=== PATIENT | male | born 2000 | race Caucasian/White ===

== ENCOUNTER 2024-11-19 13:19 | Emergency (ER) | payer OTHER, SELFPAY ==
--- OUTSIDE RECORDS SUMMARY | 2024-11-19 09:00 | XMS_ITS | Encounter Summary ---
Author Organization [facility] Address [address] [place] [address] Care Team Providers Care Plater Apprentice Name Role Phone Unavailable Primary Care Provider Unavailabl e Reason for Referral * Procedure/Equipment (Routine) - Incomplete Specialty Diagnoses / Procedures Referred By Mare t Referred To Contact Diagnoses Pain of left calf Procedures US VENOUS LEFT LOWER EXTREM DOPPLER Nino Martínez MD [address] [place] [address] Phone: tel: fax: Referral ID Status Reason Start Date Expiration Date V isits Requested Visits Authorized [id number] Incomplete 11/19/2024 02/18/2026 1 1 Reason for Visit * Reason Comments LEG PAIN Encounter Details Date Type Department Care Team (Late st Contact Info) Description 11/19/2024 9:00 AM CDT Office Visit [facility] [facility] [facility] [address] [place] [address] Nino Martínez MD [address] [place] [address] Encounter related to worker's compensation claim; Pain of left calf Social History Tobacco Use Types Packs/Day Years Used Date Smoking Tobacco: Never Assessed Sex and Gender Information Value Date Recorded Sex Assigned at Not on file Legal Sex Male 8:47 AM CDT Gender Identity Not on file Sexual Orientation Not on file documented as of this encounter Last Filed Vital Signs Vital Sign Reading Time Taken Comments Blood Pressure 127/60 11/19/2024 9:06 AM CDT Pulse 67 11/19/2024 9:06 AM CDT Temperature 37 C (98.6 F) 11/19/2024 9:06 AM CDT Respiratory Rate 16 11/19/2024 9:06 AM CDT Oxygen Saturation 100% 11/19/2024 9:06 AM CDT Inhaled Oxygen Concentration - - Weight - - Height - - Body Mass Index - - documented in this encounter Patient Instructions * Patient Instructions* Nino Martínez MD - 11/19/2024 9:00 AM CDT Go to [facility] ER for further evaluation. documented in this encounter Progress Notes * Nino Martínez MD - 11/19/2024 9:00 AM CDT CHIEF COMPLAINT Chief Complaint Patient presents with LEG PAIN HISTORY OF PRESENT ILLNESS 24 y.o. year old male presents to the Urgent Care today for evaluation of worker's comp evaluation for a crushing injury on the left calf. Apparently while at work on 11/14/2024 his left leg caught between 2 machines where he felt like the leg was squished. Afterward he thought he has only mind injuries but since then it continues to swell and bruise and started noticing tingling and numbness down to the left foot. Has tried upon ice pack and take ibuprofen with some relief. He attempts to go to work today and was told to come in therefore the reason why he is here. Denies any shortness of breath or chest pain. Reviewed Nursing Notes: Tatiana Edwards RN 11/19/24 0906 Signed Mani Lopez is a 24 y.o.male presents to the Urgent Care for LEG PAIN . Patient presents with pain to L leg that happened while at work on 11/14. Leg was squished between two machines. Swelling and bruising noted. He reports numbness and tingling to L foot. Sensation intact. Has tried ice and ibuprofen with some relief. REVIEW OF SYSTEMS 10 review of systems were reviewed and normal except what were noted under HPI. PRIOR HISTORY Medications: Medications - Previous to this Encounter[1] Reviewed via [facility] Chart Review/CareEverywhere: Allergies Past Medical HistoryProblem List[2] Past Surgical History Social HistorySocial History[3] PHYSICAL EXAM Vitals Reviewed: BP 127/60 (BP Location: Right Arm, BP Cuff Size: Regular - Long) Pulse 67 Temp 37 ??C (98.6 ??F) (Oral) Resp 16 SpO2 100% GENERAL: Healthy-appearing patient. Alert oriented x3. In no acute respiratory distress. 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 HEAD: Normocephalic atraumatic. EYE: Nonicteric sclera. Conjunctiva without injection. ENT: Neck supple. CV: Regular rate and rhythm without murmur. Distal pulses are equally palpable and appear to be normal. PULM: Normal auscultation of both lungs. No wheezing, crackles and rales appreciated. MSK: Examination of the left calf in comparing to the right noticed some areas of ecchymosis right [id number] and also just above the ankle on the left side. Noted to be edematous but nonpitting.Palpating the calf appears to be very firm and very tender. Decreased dorsalis pulse on the left side compared to the right. The toes did not seem to be cold to touch in comparing to the right. SKIN: No rash or other lesions appreciated. NEURO: Alert and oriented x3. Able to communicate in full sentences. LABS - IMAGING - MEDICATIONS LABS/EKG: No results found for any visits on 11/19/24. IMAGING: US VENOUS LEFT LOWER EXTREM DOPPLER Result Date: 11/19/2024 EXAM: US VENOUS LEFT LOWER EXTREM DOPPLER INDICATION: recent crushing injury/paind and swelling COMPARISON: None. TECHNIQUE: The venous system of the left lower extremity was visualized using color-flow Doppler technique. FINDINGS: The common femoral, proximal deep femoral, femoral, popliteal, and v isualized portions of the posterior tibial and peroneal veins show normal compressibility, color flow, and response to augmentation. The great saphenous vein compresses normally. TINOCO'S CYST: No Nonspecific complex collection in the soft tissues at the level of the distal calf medially measuring 7.1 x 4.7 x 1.8 cm. No associated color Doppler flow. 1. No evidence of deep venous thrombosis. Small calf vein thrombosis cannot be completely excluded by this technique. 2. Nonspecific complex collection measuring up to 7.1 cm in the soft tissues of the distal calf medially. Given history of recent trauma, findings probably represent hematoma. Signed by: Syed Carrasco 11/19/2024 11:00 AM INTERVENTIONS: MEDICAL DECISION MAKING Patient seen and assessed. Presented to Urgent Care for what appears to be a crushing injury to on the left calf causing now swelling and pain and ecchymosis. Differential diagnosis include DVT, compartment syndrome. Proceed with ultrasound to rule out DVT and this would give us some ideas of what is going on with the compartment as well. The ultrasound rule out DVT however does have hematoma in the soft tissue. At this point I explained to the patient that he needs to go to the ER to further evaluate for compartment syndrome. The patient voiced understanding. His co-worker we will come pick him up and taking him directly to the [facility] ER which is the closest hospital here. ASSESSMENT & PLAN DIAGNOSIS: ICD-10-CM 1. Encounter related to worker's compensation claim [email or web address] 2. Pain of left calf M79.662 US VENOUS LEFT LOWER EXTREM DOPPLER DISPOSITION: Discharge Home Nino Martínez M.D. [place] [address] [facility] [1] No outpatient medications prior to visit. No facility-administered medications prior to visit. [2] There is no problem list on file for this patient. [3] Social History Tobacco Use Smoking status: Not on file Smokeless tobacco: Not on file Substance Use Topics Alcohol use: Not on file Drug use: Not on file documented in this encounter Nursing Notes * Tatiana Edwards RN - 11/19/2024 9:00 AM CDT Mani Lopez is a 24 y.o.male presents to the Urgent Care for LEG PAIN . Patient presents with pain to L leg that happened while at work on 11/14. Leg was squished between two machines. Swelling and bruising noted. He reports numbness and tingling to L foot. Sensation intact. Has tried ice and ibuprofen with some relief. documented in this encounter Plan of Treatment Not on file documented as of this encounter Results * US VENOUS LEFT LOWER EXTREM DOPPLER (11/19/2024 10:56 AM CDT) Anatomical Region Laterality Modality Vascular, Leg Ultrasound Impressions 11/19/2024 11:00 AM CDT 1. No evidence of deep venous thrombosis. Small calf vein thrombosis cannot be completely excluded by this technique. 2. Nonspecific complex collection measuring up to 7.1 cm in the soft tissues of the distal calf medially. Given history of recent trauma, findings probably represent hematoma. Signed by: Syed Carrasco 11/19/2024 11:00 AM Narrative 11/19/2024 11:00 AM CDT EXAM: US VENOUS LEFT LOWER EXTREM DOPPLER INDICATION: recent crushing injury/paind and swelling COMPARISON: None. TECHNIQUE: The venous system of the left lower extremity was visualized using color-flow Doppler technique. FINDINGS: The common femoral, proximal deep femoral, femoral, popliteal, and visualized portions of the posterior tibial and peroneal veins show normal compressibility, color flow, and response to augmentation. The great saphenous vein compresses normally. TINOCO'S CYST: No Nonspecific complex collection in the soft tissues at the level of the distal calf medially measuring 7.1 x 4.7 x 1.8 cm. No associated color Doppler flow. Procedure Note Syed Carrasco MD - 11/19/2024 EXAM: US VENOUS LEFT LOWER EXTREM DOPPLER INDICATION: recent crushing injury/paind and swelling COMPARISON: None. TECHNIQUE: The venous system of the left lower extremity was visualizedusing color-flow Doppler technique. FINDINGS: The common femoral, proximal deep femoral, femoral, popliteal, andvisualized portions of the posterior tibial and peroneal veins show normalcompressibility, color flow, and response to augmentation. The greatsaphenous vein compresses normally. TINOCO'S CYST: No Nonspecific complex collection in the soft tissues at the level of thedistal calf medially measuring 7.1 x 4.7 x 1.8 cm. No associated colorDoppler flow. IMPRESSION 1. No evidence of deep venous thrombosis. Small calf vein thrombosiscannot be completely excluded by this technique. 2. Nonspecific complex collection measuring up to 7.1 cm in the softtissues of the distal calf medially. Given history of recent trauma,findings probably represent hematoma. Signed by: Syed Carracso 11/19/2024 11:00 AM us Nino Martínez MD [facility] Final Result documented in this encounter Visit Diagnoses Diagnosis Encounter related to worker's compensation claim Pain of left calf Pain of left calf documented in this encounter
--- OUTSIDE RECORDS SUMMARY | 2024-11-19 11:00 | XMS_ITS | Encounter Summary ---
Author Organization [facility] Address [address] [place] [address] Care Team Providers Care Blood Donor Recruiter Supervisor Name Role Phone Unavailable Primary Care Provider Unavailabl e Reason for Visit * Procedure/Equipment (Routine) - Incomplete Specialty Diagnoses / Procedures Referred By Mare t Referred To Contact Diagnoses Pain of left calf Procedures US VENOUS LEFT LOWER EXTREM DOPPLER Nino Martínez MD [address] [place] [address] Phone: tel: fax: Referral ID Status Reason Start Date Expiration Date V isits Requested Visits Authorized [id number] Incomplete 11/19/2024 02/18/2026 1 1 Encounter Details Date Type Department Care Team (Late st Contact Info) Description 11/19/2024 11:00 AM CDT Ancillary Procedure [facility] [address] [place] [address] Nino Martínez MD [address] [place] [address] Pain of left calf Social History Tobacco Use Types Packs/Day Years Used Date Smoking Tobacco: Never Assessed Sex and Gender Information Value Date Recorded Sex Assigned at Not on file Legal Sex Male 8:47 AM CDT Gender Identity Not on file Sexual Orientation Not on file documented as of this encounter Plan of Treatment Not on file documented as of this encounter Procedures Procedure Name Priority Date/Time Associated Diagnosis Comments US VENOUS LEFT LOWER EXTREM DOPPLER STAT 11/19/2024 10:56 AM CDT Pain of left calf documented in this encounter Results * US VENOUS LEFT [...] trauma,findings probably represent hematoma. Signed by: Syed Carrasco 11/19/2024 11:00 AM us Nino Martínez MD [facility] Final Result documented in this encounter Visit Diagnoses Diagnosis Pain of left calf documented in this encounter
[2024-11-19 13:37] VITALS: BP 110/63; PULSE 67; RESP 16; TEMP 36.8; O2SAT 99; BMI 30.2
--- NOTE | 2024-11-19 13:58 | ED_ITS ---
HPI - General Adult General Chief complaint: Extremity Pain/Injury, Lower Stated complaint: L leg injury Time Seen by Provider: 11/19/24 13:22 History of Present Illness HPI narrative: Patient here today with left lower extremity and swelling after an injury that occurred at work on . 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 Patient was seen in [facility] for this. His report is that XRays were negative but concern for blood clot or compartment symptom and sent to the ER for an ultrasound. 24-year-old young man presenting to the emergency department following an injury to his left lower leg being crushed between a couple machines while on the job landscaping. This injury occurred last week. Was seen at an urgent care with negative x-rays. Seemed to be getting a little better but then a few days ago pain seemed to escalate again and had increased swelling distally. He is having trouble walking due to pain. Has had continued swelling in the medial lower left leg that seems to come and go little bit with icing. Pain primarily seems to be in this area. Concern due to increased swelling distally as well into the ankle and foot. No fevers. Urgent care and recommended that be evaluated with concern of clot. Presents with concerned colleague or rueda of sorts? Related Data Home Medications ?Medication ?Instructions ?Recorded ?Confirmed No Known Home Medications 11/19/2405/14 Allergies Allergy/AdvReac Type Severity Reaction Status Date / Time No Known Drug Allergies Allergy Verified 11/19/24 16:31 Review of Systems Status of ROS: Reports: 6 or more systems reviewed and unremarkable except as noted in History and below [facility] Social History Smoking Status: Current some day smoker What tobacco products do you use: cigarettes How often do you have a drink containing alcohol: 4 or more times a week How many standard drinks containing alcohol do you have on a typical day: 1 or 2 AUDIT-C Alcohol total score: 4 Non-prescribed substance use: denies use Exam Narrative: Exam Narrative: Pleasant. Appears a little uncomfortable with movement of his left leg. Has this propped up on a pillow in bed. Breathing easily. Heart in regular rate and rhythm. There is a little bruising in the medial knee. Diffuse swelling from the knee down. Impact site appears to be medial middle lower leg. There is subtle tissue breakdown here. I do not see cellulitic change about the leg. Below this area of possible impact there is an area of about 7 cm of more swelling a little more bruising. Ankle is swollen; it is bruised beneath both malleoli. Puffy foot as well. He is well-perfused distally. Generally tender and I think hard to distinguish Homans. Const: Vital Signs, click to edit/add: Vital Signs - 24 hr 11/19/24 13:37 Temperature 98.3 F Pulse Rate [Pulse Oximeter] 67 Respiratory Rate 16 Blood Pressure [Ri ght Upper Arm] 110/63 Pulse Oximetry 99 Oxygen Delivery Me thod Room Air Documenting provider has reviewed patient's vital signs: yes Course Vital Signs Vital signs: Initial Vital Signs Temperature 98.3 F 11/19/24 13:37 Temperature Source Temporal Artery Scan 11/19/24 13:37 Pulse Rate 67 11/19/24 13:37 Respiratory Rate 16 11/19/24 13:37 Blood Pressure 110/63 11/19/24 13:37 Blood Pressure Mean 78 11/19/24 13:37 Blood Pressure Position Sitting 11/19/24 13:37 Pulse Oximetry 99 11/19/24 13:37 Oxygen Delivery Method Room Air 11/19/24 13:37 Vital Signs Temperature 98.3 F 11/19/24 13:37 Pulse Rate 67 11/19/24 13:37 Respiratory Rate 16 11/19/24 13:37 Blood Pressure 110/63 11/19/24 13:37 Pulse Oximetry 99 11/19/24 13:37 Oxygen Delivery Method Room Air 11/19/24 13:37 Temperature 98.3 F 11/19/24 13:37 Pulse Rate 67 11/19/24 13:37 Respiratory Rate 16 11/19/24 13:37 Blood Pressure 110/63 11/19/24 13:37 Pulse Oximetry 99 11/19/24 13:37 Oxygen Delivery Method Room Air 11/19/24 13:37 Medications Administered Medications: Discontinued Medications Generic Name Dose Route Start Last Admin Trade Name Freq PRN Reason Stop Dose Admin Sodium Chloride 500 mls @ 500 mls/hr 11/19/24 15:36 11/19/24 17:36 0.9 % Sodium Chloride 500 Ml IV 11/19/24 16:35 Infused .Q1H ONE Infusion Ibuprofen 600 mg 11/19/24 14:19 11/19/24 16:05 Ibuprofen 200 Mg Tablet PO 11/19/24 14:20 600 mg ONCE ONE Administration Oxycodone/Acetaminophen 2 tab 11/19/24 14:19 11/19/24 16:06 Oxycodone/Apap 5-325 Tablet PO 11/19/24 14:20 2 tab ONCE ONE Administration Medical Decision Making MDM Narrative Medical decision making narrative: We can certainly do ultrasound looking for the venous thrombus. I think that w ould be beneficial now a week in and to characterize this area of swelling. I think that most of the swelling though is related to mobilization of edema/hematoma. No fracture noted on initial imaging though this may still be present. Compartment syndrome also in differential although I think that does not have the degree of pain I would expect with this and is well-perfused. Appeared to appreciate offer of pain medication but declined once actually brought to him. Discussed findings and ultrasound with lens cementer. Primary finding of hematoma. No DVT. Radiology over-read below Study:?US-Extremity Left LEV-11/19/2024 3:22:04 PM Ordering Physician:Madonna Mccartney Final Report: INDICATION: Increased pain swelling TECHNIQUE: A compression venous ultrasound exam was performed of the left lower extremity using andres-scale imaging, color Doppler and spectral Doppler analysis. FINDINGS: Sonographic imaging of the left lower extremity demonstrates normal compressibility and color Doppler venous blood flow within the common femoral vein, deep femoral vein, and the proximal greater saphenous vein. Within the thigh, the femoral vein is patent and compressible. At a lower level, the popliteal and posterior tibial veins also show normal compressibility and color Doppler venous blood flow. Limited imaging of the contralateral groin demonstrates a normal spectral waveform and color Doppler venous blood flow within the right common femoral vein. Along the left medial distal calf in the area of lump complex fluid collection measuring 8.5 x 1.6 x 4.9 centimeters. If There has been history of trauma this may represent a hematoma. IMPRESSION: No evidence of deep vein thrombosis within the left lower extremity. Increased pain swelling. Complex fluid collection measuring 8.5 x 1.6 x 4.9 centimeters along the left medial distal calf may represent hematoma there has been history of trauma would recommend follow-up imaging clinical correlation. Dictated by Mary Ann Kaur MD @ 11/19/2024 3:48:30 PM Clarifying again that there has been a relatively abrupt change in the swelling. I think evaluating for active extravasation might be a good idea. I did propose CT scan. Can check hemoglobin as well as CPK here on blood draw. I did independently review CT imaging. Do not see evidence of a fracture further. Radiology over-read below not noting any active bleeding. INDICATION: EVALUATE FOR ACTIVE BLEEDING IN HEMATOMA. (Sic) No additional clinical history is given. According to the ultrasound worksheet from the same day examination performed earlier the patient presents with left leg pain and swelling associated with a work-related injury not otherwise described. COMPARISON: Same day ultrasound. TECHNIQUE: Single-phase axial CT of the left lower extremity from knee to ankle following intravenous administration of 92 mL Isovue 370. 2D coronal and sagittal reformations were done. No MIP images. FINDINGS: Circumscribed homogeneous hyperattenuating, compared to muscle, lobulated lesion in the superficial anteromedial aspect of the left lower leg measuring approximally 7.2 cm in greatest dimension (craniocaudad as demonstrated on series 6; image 57. Region of interest interrogation shows a Hounsfield measurement of 74 HU consistent with acute clotted blood. These findings are consistent with a hematoma in concordant with the ultrasound findings on the examination performed earlier the same day. There is no evidence of extravasation of intravenous contrast material to indicate active bleeding. Circumferential subcutaneous fat reticulation in the lower leg extending to the medial ankle is consistent with edema/hemorrhage. The hematoma is superficial to the great saphenous vein which is compressed but patent (series 3; image 139, for example). No fracture is identified. IMPRESSION: 1. Superficial hematoma in the medial aspect of the left lower leg measuring approximally 7.2 cm in greatest dimension (craniocaudad). Associated diffuse subcutaneous edema/hemorrhage of the lower leg and medial ankle. 2. No evidence of active bleeding on this single phase postcontrast study. No findings suspicious for pseudoaneurysm. No fracture. Please note that all CT scans at this facility use dose modulation, iterative reconstruction, and/or weight-based dosing when appropriate to reduce radiation dose to as low as reasonably achievable. Dictated by Fransico Roblero MD @ 11/19/2024 5:02:43 PM I think mobilizing some of this fluid would be helpful with discomfort. Recommending activity as tolerated and ankle pumps. I did place a couple Willis wraps. See patient discharge plan for further discussion I think it would be a good idea to rest from your typically physical job for the remainder of this week. Continue to apply antibiotic ointment or white petroleum jelly to the most irritated skin over this week. These Willis wraps might be helpful to push fluid out and therefore improve your comfort. Elevate your leg when at rest. Continue to intermittently flex your ankle while at rest to help mobilize fluid. Can alternate cold and warm packs. Can take up to 800 mg of ibuprofen or up to 1000 mg of acetaminophen per dose. These can also be combined. Lab Data Lab results reviewed: Yes I reviewed the patient's lab results Labs: Lab Results 11/19/24 Range/Units 16:00 WBC 7.02 (4.50-11.00) K/uL RBC 4.82 (4.30-5.90) m/uL Hgb 14.8 (13.5-17.5) gm/dL Hct 43.4 (37.0-53.0) % MCV 90 (80-100) fL MCH 31 (26-34) pg MCHC 34 (32-36) gm/dL RDW Coeff of Ray 13.1 (11.5-15.5) % Plt Count 296 (140-440) K/uL Neut % (Auto) 67.5 (42.0-72.0) % Lymph % (Auto) 18.5 L (20-44) % Casey % (Auto) 11.4 H (0.0-11.0) % Eos % (Auto) 1.9 (0.0-7.0) % Baso % (Auto) 0.6 (0.0-3.0) % Neut # (Auto) 4.74 (1.7-7.0) K/uL Lymph # (Auto) 1.30 (0.90-2.90) K/uL Casey # (Auto) 0.80 (0.00-0.90) K/UL Eos # (Auto) 0.13 (0.00-0.50) K/uL Baso # (Auto) 0.04 (0.00-0.30) K/uL Abs Immat Gran (auto) 0.01 (0.00-0.30) K/uL Imm/Tot Granulo (auto) 0.1 % Sodium 138 (135-149) mmol/L Potassium 4.3 (3.6-5.1) mmol/L Chloride 102 (96-114) mmol/L Carbon Dioxide 29 (20-32) mmol/L Anion Gap 7 (7-15) mEq/L BUN 18 (5-24) mg/dL Creatinine 1.0 (0.5-1.5) mg/dL Estimated Creat Clear 102.79 Estimated GFR 108 ml/min Glucose 103 (60-115) mg/dL Calcium 8.9 (8.4-10.6) mg/dL Total Creatine Kinase 32 L (54-186) U/L Discharge Plan Discharge Clinical Impression: Hematoma, Leg pain, Contusion Patient Disposition: Home w/ Parent or Adult Condition: Stable Additional Instructions: I think it would be a good idea to rest from your typically physical job for the remainder of this week. Continue to apply antibiotic ointment or white petroleum jelly to the most irritated skin over this week. These Willis wraps might be helpful to push fluid out and therefore improve your comfort. Elevate your leg when at rest. Continue to intermittently flex your ankle while at rest to help mobilize fluid. Can alternate cold and warm packs. Can take up to 800 mg of ibuprofen or up to 1000 mg of acetaminophen per dose. These can also be combined. Creo que ser?a buena idea que descansara de elena trabajo f?sico habitual hai el meena de la semana. Contin?e aplicando jay?ento antibi?roxane o vaselina petra en la piel m?s irritada hai esta semana. Estas vendas el?sticas pueden ser ?tiles para expulsar el l?quido y, por lo tanto, mejorar elena comodidad. Eleve la pierna cuando est? en reposo. Contin?e flexionando el tobillo intermitentemente mientras est? en reposo para ayudar a movilizar el l?quido. Puede alternar compresas fr?as y calientes. Puede shahla hasta 800 mg de ibuprofeno o hasta 1000 mg de acetaminof?n por dosis. Tambi?n se pueden combinar. Prescriptions: No Action No Known Home Medications Follow Up/Referrals: Provider,Not a Local [Primary Care Provider, Family Practice] Stand Alone Forms: [employer] Info Instructions
--- NOTE | 2024-11-19 14:19 | CRLHL7_ITS ---
For Patients: As a result of the Century Cures Act, medical imaging exams and procedure reports are released immediately into your electronic medical record. You may view this report before your referring provider. If you have questions, please contact your health care provider. INDICATION: Increased pain swelling TECHNIQUE: A compression venous ultrasound exam was performed of the left lower extremity using andres-scale imaging, color Doppler and spectral Doppler analysis. FINDINGS: Sonographic imaging of the left lower extremity demonstrates normal compressibility and color Doppler venous blood flow within the common femoral vein, deep femoral vein, and the proximal greater saphenous vein. Within the thigh, the femoral vein is patent and compressible. At a lower level, the popliteal and posterior tibial veins also show normal compressibility and color Doppler venous blood flow. Limited imaging of the contralateral groin demonstrates a normal spectral waveform and color Doppler venous blood flow within the right common femoral vein. Along the left medial distal calf in the area of lump complex fluid collection measuring 8.5 x 1.6 x 4.9 centimeters. If There has been history of trauma this may represent a hematoma. IMPRESSION: No evidence of deep vein thrombosis within the left lower extremity. Increased pain swelling. Complex fluid collection measuring 8.5 x 1.6 x 4.9 centimeters along the left medial distal calf may represent hematoma there has been history of trauma would recommend follow-up imaging clinical correlation. Dictated by Mary Ann Kaur MD @ 11/19/2024 3:48:30 PM (Electronically Signed)
--- NOTE | 2024-11-19 15:36 | CRLHL7_ITS ---
For Patients: As a result of the Century Cures Act, medical imaging exams and procedure reports are released immediately into your electronic medical record. You may view this report before your referring provider. If you have questions, please contact your health care provider. INDICATION: EVALUATE FOR ACTIVE BLEEDING IN HEMATOMA. (Sic) No additional clinical history is given. According to the ultrasound worksheet from the same day examination performed earlier the patient presents with left leg pain and swelling associated with a work-related injury not otherwise described. COMPARISON: Same day ultrasound. TECHNIQUE: Single-phase axial CT of the left lower extremity from knee to ankle following intravenous administration of 92 mL Isovue 370. 2D coronal and sagittal reformations were done. No MIP images. FINDINGS: Circumscribed homogeneous hyperattenuating, compared to muscle, lobulated lesion in the superficial anteromedial aspect of the left lower leg measuring approximally 7.2 cm in greatest dimension (craniocaudad as demonstrated on series 6; image 57. Region of interest interrogation shows a Hounsfield measurement of 74 HU consistent with acute clotted blood. These findings are consistent with a hematoma in concordant with the ultrasound findings on the examination performed earlier the same day. There is no evidence of extravasation of intravenous contrast material to indicate active bleeding. Circumferential subcutaneous fat reticulation in the lower leg extending to the medial ankle is consistent with edema/hemorrhage. The hematoma is superficial to the great saphenous vein which is compressed but patent (series 3; image 139, for example). No fracture is identified. IMPRESSION: 1. Superficial hematoma in the medial aspect of the left lower leg measuring approximally 7.2 cm in greatest dimension (craniocaudad). Associated diffuse subcutaneous edema/hemorrhage of the lower leg and medial ankle. 2. No evidence of active bleeding on this single phase postcontrast study. No findings suspicious for pseudoaneurysm. No fracture. Please note that all CT scans at this facility use dose modulation, iterative reconstruction, and/or weight-based dosing when appropriate to reduce radiation dose to as low as reasonably achievable. Dictated by Fransico Roblero MD @ 11/19/2024 5:02:43 PM (Electronically Signed)
--- OUTSIDE RECORDS SUMMARY | 2024-11-19 15:38 | XMS_ITS | Clinical Summary ---
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 [facility] Allergies No known active allergies Encounters Date Type Department Care Team Description 11/19/2024 11:00 AM CDT Ancillary Procedure [facility] [address] [place] [address] Nino Martínez MD Pain of left calf 11/19/2024 9:00 AM CDT Office Visit [id number] [address] [place] [address] Nino Martínez MD Encounter related to worker's compensation claim; Pain of left calf from Last 3 Months Social History Tobacco Use Types Packs/Day Years Used Date Smoking Tobacco: Never Assessed Sex and Gender Information Value Date Recorded Sex Assigned at Not on file Legal Sex Male 8:47 AM CDT Gender Identity Not on file Sexual Orientation Not on file Last Filed Vital Signs Vital Sign Reading Time Taken Comments Blood Pressure 127/60 11/19/2024 9:06 AM CDT Pulse 67 11/19/2024 9:06 AM CDT Temperature 37 C (98.6 F) 11/19/2024 9:06 AM CDT Respiratory Rate 16 11/19/2024 9:06 AM CDT Oxygen Saturation 100% 11/19/2024 9:06 AM CDT Inhaled Oxygen Concentration - - Weight - - Height - - Body Mass Index - - Plan of Treatment Health Maintenance Due Date Last Done Comments Hep C Screening (Preventive Services) 2000 HPV Vaccine (1 - Male 3-dose series) 11/02/2015 HIV Screening (Preventive Services) 2016 Adult Preventive Visit 2018 DTaP/Tdap/Td Vaccine (1 - Tdap) 11/02/2019 HepB Vaccine (1) 11/02/2019 COVID-19 Vaccine (1 - 2023-2 5 season) 2024 Influenza Vaccine (#1) 2024 Zoster/Shingles Vaccine (1 of 2) 2050 HepA Vaccine Aged Out No longer eligi ble based on patient's age to complete this topic Hib Vaccine Aged Out No longer eligi ble based on patient's age to complete this topic IPV (Polio) Vaccine Aged Out No longe r eligible based on patient's age to complete this topic MCV4 Vaccine Aged Out No longer eligi ble based on patient's age to complete this topic Meningococcal B Vaccine Aged Out No l onger eligible based on patient's age to complete this topic Pneumococcal Vaccine Aged Out No long er eligible based on patient's age to complete this topic Procedures Procedure Name Priority Date/Time Associated Diagnosis Comments US VENOUS LEFT LOWER EXTREM DOPPLER STAT 11/19/2024 10:56 AM CDT Pain of left calf from Last 3 Months Results * US VENOUS LEFT LOWER EXTREM [...] Signed by: Syed Carrasco 11/19/2024 11:00 AM Nino Martínez MD [facility] Final Result from Last 3 Months Insurance [employer]
[2024-11-19] MEDS: IBUPROFEN 200 MG TABLET 600 MG PO (16:05)
[2024-11-19] MEDS: OxyCODONE/APAP 5-325 TABLET 2 TAB PO (16:06)
[2024-11-19] MEDS: 0.9 % SODIUM CHLORIDE 500 ML 500 ML IV (16:08)
[2024-11-19 16:12] LABS: Hematocrit 43.4 % (37.0-53.0); Hemoglobin* 14.8 gm/dL (13.5-17.5); Immature Granulocytes Abs Auto 0.01 K/uL (0.00-0.30); Immature Granulocytes Pct Auto 0.1 %; Lymphocytes Absolute Auto 1.30 K/uL (0.90-2.90); Mean Corpuscular HGB Conc 34 gm/dL (32-36); Mean Corpuscular Hemoglobin 31 pg (26-34); Mean Corpuscular Volume 90 fL (80-100); RDW Coefficient of Variation % 13.1 % (11.5-15.5); Red Blood Count 4.82 m/uL (4.30-5.90); White Blood Count* 7.02 K/uL (4.50-11.00)
[2024-11-19 16:17] LABS: Slide Review Reflex No
[2024-11-19 16:25] LABS: Chloride* 102 mmol/L (96-114); Potassium* 4.3 mmol/L (3.6-5.1); Sodium* 138 mmol/L (135-149)
[2024-11-19 16:28] LABS: Blood Urea Nitrogen* 18 mg/dL (5-24); Creatine Kinase* 32 U/L (54-186); Creatinine* 1.0 mg/dL (0.5-1.5); Est. Creatinine Clearance* 102.79; Estimated Glomerular Filt Rate 108 ml/min
[2024-11-19 16:29] LABS: Anion Gap 7 mEq/L (7-15); Calcium* 8.9 mg/dL (8.4-10.6); Carbon Dioxide* 29 mmol/L (20-32); Glucose* 103 mg/dL (60-115)
== END 2024-11-19 17:42 | disposition home or self-care (01) ==
PROVIDERS: Emergency Provider Family Medicine
DX: S80.12XA Contusion of left lower leg, initial encounter (principal); M79.605 Pain in left leg; W31.9XXA Contact with unspecified machinery, initial encounter; Y93.H2 Activity, gardening and landscaping; Y99.0 Civilian activity done for income or pay
CPT/HCPCS: 36415; 73701; 80048; 82550; 85025; 93971; 96360; 99283; 99284; 99285; A9270; J7030; Q9967